=== PATIENT | female | born 1945 | race Caucasian/White ===

== ENCOUNTER 2017-04-20 12:58 | Emergency (ER) | payer MEDICARE, SELFPAY ==
[2017-06-18] MEDS ORDERED: VITAMIN D1000 UNI1 PO (13:02)
[2017-06-18] MEDS ORDERED: NEXIUM40 MG PO (13:02)
[2017-06-18] MEDS ORDERED: ZESTRIL5 MG PO (13:03)
[2017-06-18] MEDS ORDERED: FERROUS SULFAT325 MG PO (13:03)
[2017-06-18] MEDS ORDERED: GLUCOPHAGE1000 MG PO (13:03)
[2017-06-18] MEDS ORDERED: CIPRO500 MG PO (13:13)
== END 2017-04-20 18:35 | disposition home or self-care (01) ==
LOC: ER 12:58
DX: R55 Syncope and collapse (principal); K92.2 Gastrointestinal hemorrhage, unspecified; D64.9 Anemia, unspecified; E11.9 Type 2 diabetes mellitus without complications; I10 Essential (primary) hypertension; Z79.82 Long term (current) use of aspirin; Z79.84 Long term (current) use of oral hypoglycemic drugs; Z79.899 Other long term (current) drug therapy; Z88.0 Allergy status to penicillin; Z88.1 Allergy status to other antibiotic agents; Z88.2 Allergy status to sulfonamides; Z88.8 Allergy status to other drugs, medicaments and biological substances
CPT/HCPCS: 36415; 96361; 96365